=== PATIENT | female | born 1965 | race Caucasian/White ===

== ENCOUNTER 2017-07-14 05:57 | Day surgery (SDC) | payer OTHER ==
[2017-07-14] MEDS ORDERED: DIPRIVAN 200 MG/20 ML IV ONE (05:58)
[2017-07-14] MEDS ORDERED: Versed 2 MG/2 ML Injection IV ONE (05:58)
[2017-07-14] MEDS ORDERED: Lactated Ringers 1,000 ML IV SCH (06:30)
[2017-07-14 09:10] VITALS: BP 118/81; PULSE 80; O2SAT 98
--- NOTE | 2017-07-14 09:42 | OP ---
SURGERY DATE/TIME: 07/14/2017 0727 PREOPERATIVE DIAGNOSIS: Screening exam. POSTOPERATIVE DIAGNOSIS: Sigmoid colon polyp. PROCEDURE: Colonoscopy with biopsy. SURGEON: Dr. Nichole. ANESTHESIA: MAC. Medications given by anesthesia department. HISTORY: The patient is a 52 year-old white female presenting now for her first screening colonoscopy. She was appraised of the risks of the procedure including the risk of perforation, phlebitis, untoward reaction to medication, bleeding and missed lesions. The patient verbalized her understanding and desired to have the procedure performed. DESCRIPTION OF PROCEDURE: The patient was given the medications by the anesthesia department. She had continuous pulse oximetry, ECG monitoring, intermittent blood pressure monitoring and tidal CO2 monitoring during the examination. She was placed in the left lateral decubitus position. A digital rectal examination was performed and revealed normal anal sphincter tone and no masses. There were noted to be external hemorrhoids. The flexible Olympus pediatric colonoscope was used to intubate the rectum. A view of the colon was developed sequentially to the cecum. Upon insertion and withdrawal, including a retroflex view in the rectum was noted one small polyp measuring approximately 0.7 cm in size which was biopsied using cold biopsy technique destroying the lesion. Upon insertion and withdrawal including retroflex view in the rectum no other mucosal lesions being encountered the scope was removed from the patient who tolerated the procedure well and was sent back to OP recovery in good condition. The prep was noted to be good.
== END 2017-07-14 08:50 | disposition home or self-care (01) ==
LOC: SDC 05:57
PROVIDERS: ATTEND Family Medicine
PROC: 0DBN8ZX Excision of Sigmoid Colon, Via Natural or Artificial Opening Endoscopic, Diagnostic (ICD-10-PCS; principal; 2017-07-14)
DX: K63.5 Polyp of colon (principal); Z12.11 Encounter for screening for malignant neoplasm of colon; E78.5 Hyperlipidemia, unspecified; K21.9 Gastro-esophageal reflux disease without esophagitis
CPT/HCPCS: 88305; J2250; J2704

== ENCOUNTER 2017-11-09 11:32 | Emergency (ER) | payer OTHER ==
[2017-11-09] MEDS ORDERED: BENADRYL 50 MG/ML IV ONE (11:40)
[2017-11-09] MEDS ORDERED: Sodium Chloride 0.9% 1000 ML 1,000 ML IV STA (11:40)
[2017-11-09] MEDS ORDERED: solu-MEDROL 125 MG IV ONE (11:40)
[2017-11-09] MEDS ORDERED: Pepcid 20 MG VIAL IV ONE ×2 (11:40→11:45)
[2017-11-09] MEDS ORDERED: CLARITIN 10 MG PO ONE (11:40)
--- NOTE | 2017-11-09 11:40 | ERPHSYRPT ---
- History of Present Illness Time Seen by Provider: 11/09/17 11:36 Source: patient Exam Limitations: no limitations Physician History: The patient is a 52-year-old female complaining of a sudden onset of swelling to her upper eyelids, itchiness in the back of her throat, and feeling of the well. This began just a few minutes before arrival. She started taking colchicine first time yesterday for gout. She took 1 dose again today at about 7:30 or hours ago. She is not allergic to any no medicines. She has a little bit of a rash to her upper eyelids. Past medical history is significant for gout, hypothyroidism, and GERD. Timing/Duration: today, sudden Severity: moderate Modifying Factors: Improves With: nothing Associated Symptoms: shortness of breath, rash Allergies/Adverse Reactions: walnut Allergy (Severe, Verified 11/09/17 14:09) Tightness of Throat rofecoxib [From Vioxx] Adverse Reaction (Severe, Verified 11/09/17 14:09) severe rectal bleeding Home Medications: Estradiol 1 mg [Estrace 1 mg] 1 mg PO DAILY 07/05/17 [History] Levothyroxine Sodium 112 Mcg [Synthroid 112 Mcg] 112 mcg PO DAILY 07/05/17 [History] Lovastatin 20 mg PO DAILY 07/05/17 [History] Omeprazole 20 MG [Prilosec 20 mg] 20 mg PO BID 07/05/17 [History] Colchicine 0.6 mg PO 11/09/17 [History] Estradiol 1 mg [Estrace 1 mg] 1 mg PO DAILY 11/09/17 [History] Omeprazole 20 MG [Prilosec 20 mg] 20 mg PO 11/09/17 [History] - Review of Systems Constitutional: No Fever, No Chills Eyes: No Symptoms Ears, Nose, & Throat: No Symptoms Respiratory: Dyspnea Cardiac: Edema (eye lids) Abdominal/Gastrointestinal: No Abdominal Pain, No Nausea, No Vomiting, No Diarrhea Genitourinary Symptoms: No Dysuria Musculoskeletal: No Back Pain, No Neck Pain Skin: Rash Neurological: No Dizziness, No Focal Weakness, No Sensory Changes Psychological: No Symptoms Endocrine: No Symptoms Hematologic/Lymphatic: No Symptoms Immunological/Allergic: No Symptoms All Other Systems: Reviewed and Negative - Nursing Vital Signs Nursing Vital Signs: Initial Vital Signs Temperature 98.2 F 11/09/17 11:36 Pulse Rate 72 11/09/17 11:36 Respiratory Rate 22 11/09/17 11:36 Blood Pressure 149/84 11/09/17 11:36 O2 Sat by Pulse Oximetry 99 11/09/17 11:36 Pain Scale Pain Intensity 0 - Physical Exam General Appearance: no apparent distress, alert Eye Exam: PERRL/EOMI, other (swelling of medial aspect of bilateral upper eye lids.) Ears, Nose, Throat Exam: TMs normal, pharynx normal, moist mucous membranes, other (slightly swollen uvula) Neck Exam: normal inspection, non-tender, supple, full range of motion Respiratory Exam: normal breath sounds, lungs clear, No respiratory distress, No wheezing Cardiovascular Exam: regular rate/rhythm, normal heart sounds, normal peripheral pulses Gastrointestinal/Abdomen Exam: soft, normal bowel sounds, No tenderness, No mass Pelvic Exam: not done Rectal Exam: not done Back Exam: normal inspection, normal range of motion, No CVA tenderness, No vertebral tenderness Extremity Exam: normal inspection, normal range of motion, pelvis stable Neurologic Exam: alert, oriented x 3, cooperative, normal mood/affect, nml cerebellar function, nml station & gait, sensation nml, No motor deficits Skin Exam: normal color, warm, dry, No rash Lymphatic Exam: No adenopathy SpO2 Interpretation: normal Oxygen Delivery: Room Air - Radiology Exams Chest X-ray Interpretation: Reviewed by me, Teleradiologist Report (per Dr Oneal), Other (single view AP chest with right base infiltrate versus atelecstasis. ) Ordered Tests: Active Orders 24 hr Category Date Time Status IV Insertion STAT Care 11/09/17 11:40 Active Pulse Oximetry (ED) STAT Care 11/09/17 11:40 Active CHEST 1 VIEW (PORTABLE) Stat Exams 11/09/17 11:41 Completed BMP Stat Lab 11/09/17 11:50 Completed CBC W DIFF Stat Lab 11/09/17 11:50 Completed Medication Summary Discontinued Medications Generic Name Dose Route Start Last Admin Trade Name Freq PRN Reason Stop Dose Admin Diphenhydramine HCl 50 mg 11/09/17 11:40 11/09/17 11:59 Benadryl 50 Mg/Ml IV 11/09/17 11:41 50 mg STAT ONE Administration Diphenhydramine HCl Confirm 11/09/17 11:45 Benadryl 50 Mg/Ml Administered 11/09/17 11:46 Dose 50 mg .ROUTE .STK-MED ONE Famotidine 20 mg 11/09/17 11:40 11/09/17 11:59 Pepcid 20 Mg Vial IV 11/09/17 11:41 20 mg STAT ONE Administration Famotidine Confirm 11/09/17 11:45 Pepcid 20 Mg Vial Administered 11/09/17 11:46 Dose 20 mg IV .STK-MED ONE Sodium Chloride 1,000 mls @ 999 mls/hr 11/09/17 11:40 11/09/17 12:00 Sodium Chloride 0.9% 1000 Ml IV 11/09/17 12:40 999 mls/hr .Q1H1M STA Administration Sodium Chloride Confirm 11/09/17 11:45 Sodium Chloride 0.9% 1000 Ml Administered 11/09/17 11:46 Dose 1,000 mls @ ud .ROUTE .STK-MED ONE Loratadine 10 mg 11/09/17 11:40 11/09/17 12:03 Claritin 10 Mg PO 11/09/17 11:41 10 mg STAT ONE Administration Methylprednisolone Sodium Succinate 125 mg 11/09/17 11:40 11/09/17 12:00 Solu-Medrol 125 Mg IV 11/09/17 11:41 125 mg STAT ONE Administration Methylprednisolone Sodium Succinate Confirm 11/09/17 11:45 Solu-Medrol 125 Mg Administered 11/09/17 11:46 Dose 125 mg .ROUTE .STK-MED ONE Lab/Rad Data: Laboratory Result Diagrams 11/09/17 11:50 11/09/17 11:50 Laboratory Results 11/09/17 11/09/17 Range/Units 11:50 11:50 WBC 5.9 (4.0-10.5) K/mm3 RBC 4.80 (4.1-5.4) M/mm3 Hgb 14.3 (12.0-16.0) gm/dl Hct 42.5 (35-47) % MCV 88.5 (78-100) fl MCH 29.8 (26-32) pg MCHC 33.6 (32-36) g/dl RDW 14.4 H (11.5-14.0) % Plt Count 273 (150-450) K/mm3 MPV 10.3 H (6-9.5) fl Gran % 53.6 (36.0-66.0) % Eos # (Auto) 0.13 (0-0.5) Absolute Lymphs (auto) 2.24 (1.0-4.6) Absolute Monos (auto) 0.32 (0.0-1.3) Lymphocytes % 38.1 (24.0-44.0) % Monocytes % 5.4 (0.0-12.0) % Eosinophils % 2.2 (0.00-5.0) % Basophils % 0.7 (0.0-0.4) % Absolute Granulocytes 3.15 (1.4-6.9) Basophils # 0.04 (0-0.4) Sodium 140 (137-145) mmol/L Potassium 3.9 (3.5-5.1) mmol/L Chloride 104 (98-107) mmol/L Carbon Dioxide 25 (22-30) mmol/L Anion Gap 15.1 H (5-15) MEQ/L BUN 20 H (7-17) mg/dL Creatinine 0.76 (0.52-1.04) mg/dL Estimated GFR > 60.0 ML/MIN Glucose 132 H (74-106) mg/dL Calcium 9.2 (8.4-10.2) mg/dL - Progress Progress: improved - Departure Time of Disposition: 14:34 Departure Disposition: Home Clinical Impression: Allergic reaction Condition: Stable Critical Care Time: No Referrals: JOSE ANGEL RIVERS [Primary Care Provider] - Additional Instructions: You had an allergic reaction, likely to colchicine. You were given Solu-Medrol 125 mg, Benadryl 50 mg, Pepcid 20 mg, and fluids by IV. You were also given Claritin 10 mg orally. Take Benadryl 25-50 mg every 2 hours as needed. Follow- up with your primary medical doctor as needed.
[2017-11-09] MEDS ORDERED: solu-MEDROL 125 MG ONE (11:45)
[2017-11-09] MEDS ORDERED: Sodium Chloride 0.9% 1000 ML 1,000 ML ONE (11:45)
[2017-11-09] MEDS ORDERED: BENADRYL 50 MG/ML ONE (11:45)
[2017-11-09 12:11] LABS: BASOPHIL % 0.7 % (0.0-0.4); Basophil (Absolute #) 0.04 (0-0.4); Eosinophil % 2.2 % (0.00-5.0); Eosinophil (Absolute #) 0.13 (0-0.5); Granulocyte Absolute (ANC) 3.15 (1.4-6.9); Granulocytes % 53.6 % (36.0-66.0); Hematocrit 42.5 % (35-47); Hemoglobin 14.3 gm/dl (12.0-16.0); Lymphocyte (Absolute #) 2.24 (1.0-4.6); Lymphocytes % 38.1 % (24.0-44.0); Mean Cell Volume 88.5 fl (78-100); Mean Corpuscular Hemoglobin 29.8 pg (26-32); Mean Corpuscular Hgb Concent. 33.6 g/dl (32-36); Mean Platelet Volume 10.3 fl (6-9.5); Monocyte (Absolute #) 0.32 (0.0-1.3); Monocytes % 5.4 % (0.0-12.0); Platelet Count 273 K/mm3 (150-450); Red Cell Distribution Width 14.4 % (11.5-14.0); White Blood Count 5.9 K/mm3 (4.0-10.5)
--- NOTE | 2017-11-09 12:19 | XRAY ---
Indication: Short of breath. Comparison: None Portable chest demonstrates small focus right base infiltrate versus atelectasis. Remaining heart, lungs, and bony thorax normal.
[2017-11-09 12:33] LABS: ANION GAP 15.1 MEQ/L (5-15); BLOOD UREA NITROGEN 20 mg/dL (7-17); CHLORIDE 104 mmol/L (98-107); Calcium 9.2 mg/dL (8.4-10.2); Carbon Dioxide 25 mmol/L (22-30); Creatinine 1 0.76 mg/dL (0.52-1.04); Glucose 132 mg/dL (74-106); Potassium 3.9 mmol/L (3.5-5.1); SODIUM 140 mmol/L (137-145)
[2017-11-09 15:01] VITALS: BP 130/62; PULSE 78; O2SAT 97
== END 2017-11-09 15:03 | disposition home or self-care (01) ==
LOC: ED 11:32 → MERGE 11:32 → ED 15:03
DX: T78.40XA Allergy, unspecified, initial encounter (principal); Z79.899 Other long term (current) drug therapy
CPT/HCPCS: 36000; 36415; 71045; 80048; 85025; 96360; 96361; 96374; 96375; 99284; J1200; J2930; A9270-GY

== ENCOUNTER 2019-12-23 09:22 | Day surgery (SDC) | payer BC ==
[~2019-12-23 09:22] MED LIST: Lactated Ringers 1,000 ML IV ONE; Sensorcaine 0.25% 10 ML ONE
[2019-12-23] MEDS ORDERED: Lactated Ringers 1,000 ML IV ONE (09:44)
[2019-12-23] MEDS ORDERED: MEFOXIN 2 GM PREMIX** 2 GM/50 ML ML IV ONE (09:44)
[2019-12-23] MEDS ORDERED: Zemuron 100 MG/10 ML ONE ×2 (09:50→11:46)
[2019-12-23] MEDS ORDERED: SUBLIMAZE 250 MCG/5 ML ONE (09:50)
[2019-12-23] MEDS ORDERED: Versed 2 MG/2 ML Injection ONE (09:50)
[2019-12-23] MEDS ORDERED: DIPRIVAN 200 MG/20 ML IV ONE (09:50)
[2019-12-23 10:00] VITALS: O2SAT 99
[2019-12-23] MEDS ORDERED: Lactated Ringers 1,000 ML IV SCH (10:00)
[2019-12-23] MEDS ORDERED: MEFOXIN 2 GM PREMIX** 2 GM/50 ML ML IV SCH (10:00)
--- NOTE | 2019-12-23 10:11 | HP ---
DATE OF SURGERY: 12/23/2019 HISTORY OF PRESENT ILLNESS: The patient is a 54 year old with nausea, pain over the right shoulder and flank area, right upper quadrant associated with nausea and vomiting, with some light stool occasionally. Lower abdomen, flank, shoulder area aches and pains. The patient had an ultrasound that did not show any stone. HIDA scan was 82%. She was seen by Dr. Franks and had endoscopic ultrasound. He thought she had some chronic cholecystitis and gallbladder wall thickening. He felt she should proceed with cholecystectomy at this point. PAST MEDICAL HISTORY: Hypothyroidism. Hyperlipidemia. PAST SURGICAL HISTORY: Hysterectomy. Oophorectomy. Appendectomy. Diagnostic laparoscopy in the past. MEDICATIONS: Levothyroxine, lovastatin, multivitamins, omega-3 fish oil, estradiol, albuterol, Flonase. ALLERGIES: BUPROPION. COLCHINE. ROFECOXIB. WALNUT. FAMILY HISTORY: Diabetes, heart disease, thyroid disease. Her mother had some melanoma. Daughter has diabetes. SOCIAL HISTORY: No smoking or alcohol abuse. REVIEW OF SYSTEMS: Fourteen systems reviewed pertinent as noted above. No chest pain or palpitations. Other systems negative or noncontributory as above and per preadmission questionnaire. PHYSICAL EXAMINATION: GENERAL: No acute distress. HEENT: Sclerae nonicteric. NECK: No JVD. CHEST: Equal excursion, nonlabored breathing. CVS: Regular rate and rhythm. ABDOMEN: Soft. Tenderness in right lateral flank area radiating back towards the shoulder. No peritoneal signs. EXTREMITIES: No significant edema. NEURO: Alert, oriented, moving extremities symmetrically. No gross motor deficits noted. PSYCH: Appropriate mood and affect. IMPRESSION: Thickening of gallbladder wall on endoscopic ultrasound. The patient had symptoms with CPK administration. I feel she has got some chronic cholecystitis given the above findings and symptoms, acute exacerbation of chronic cholecystitis, biliary colic. I feel the patient will benefit from cholecystectomy as recommended by shot blaster. The patient was explained the procedure in detail including bleeding or infection, risk of bowel injury or perforation possibly requiring further procedure, risk of trocar injury or hernia, risk of bowel leak, bile duct injury, retained stone or sludge possibly requiring further procedure either open or ERCP, general risk of anesthesia, deep venous thrombosis, pulmonary embolism, pneumonia, perioperative risk of aches, pains, bloating, constipation and/or loose stools possibly chronic in nature, possibility this procedure may not improve her symptoms. She may need further work up and/or testing, endoscopy, other studies or procedures or referral. She understands and agrees to the planned procedure, will proceed with laparoscopic cholecystectomy with possible open as an outpatient.
[2019-12-23] MEDS ORDERED: Transderm Scop 1.5MG Patch TOP ONE (11:27)
[2019-12-23] MEDS ORDERED: Decadron 4 MG INJ ONE (11:38)
[2019-12-23] MEDS ORDERED: MORPHINE SULFATE 10 MG/ML ONE (12:36)
--- NOTE | 2019-12-23 13:20 | OP ---
SURGERY DATE/TIME: 12/23/2019 1128 PREOPERATIVE DIAGNOSIS: Symptomatic biliary colic exacerbation, chronic cholecystitis, abnormal endoscopic ultrasound, abnormal wall thickening consistent with chronic cholecystitis. POSTOPERATIVE DIAGNOSIS: Symptomatic biliary colic exacerbation, chronic cholecystitis, abnormal endoscopic ultrasound, abnormal wall thickening consistent with chronic cholecystitis. PROCEDURE: Laparoscopic cholecystectomy. SURGEON: Dr. Lg Garcia. ANESTHESIA: General. ESTIMATED BLOOD LOSS: Minimal. INDICATIONS: As noted above. Risks and benefits explained in detail but not limited to and consent obtained. DESCRIPTION OF PROCEDURE AND FINDINGS: The patient taken to the operating room. General anesthesia induced. Abdomen prepped and draped in the usual sterile fashion. After official time out and no disagreement with planned procedure, a transverse incision made through her supraumbilical prior skin incision scar. Dissection carried down. Fascia grasped and pulled upward. Veress needle inserted and tested with saline. Pneumoperitoneum accomplished insufflating opening pressure of 0-15. An 11 mm bladeless port and camera inserted without difficulty followed by two - 5 mm right upper quadrant ports and 5 mm epigastric port. The gallbladder had some mild chronic inflammatory reaction this was slowly and carefully dissected posterior, lateral to anterior fashion. The cystic artery isolated directly on the gallbladder wall, clipped x3 and divided. Slowly and carefully cystic duct and infundibular area slowly and carefully well skeletonized until the critical view obtained both anteriorly and posteriorly, this took some time given her chronic inflammatory reaction around it but slowly and carefully accomplished. Once this was accomplished critical view was obtained. The cystic duct was then clipped x3 and divided in usual fashion. Gallbladder slowly and carefully dissected free from its dense attachment to liver bed, clipping additional oozing side branches off the cystic artery as necessary directly on the gallbladder wall. Just prior to releasing from final attachments to the anterior edge of the liver, the liver bed re-inspected. Clips noted to be in place cystic duct and cystic artery stumps. No signs of any active bleeding or bile leakage. It was felt there was no benefit from drain placement. Gallbladder released from final attachments to anterior edge of the liver, pulled up and out the supraumbilical port site and passed off. Liver bed re-inspected one last time. Clips noted to be in place cystic duct and cystic artery stumps. No signs of any active bleeding or bile leakage. It was felt there is no benefit from drain placement. Fascial defect closed with puncture closure device with #1 Vicryl. Pneumoperitoneum decompressed. The wound irrigated out. Skin incision closed with 4-0 Vicryl. Steri-Strips and sterile dressing applied. 0.25% Marcaine local injected along the skin incision fascial defect. The patient tolerated the procedure well. There were no immediate complications.
[2019-12-23] MEDS ORDERED: NORCO 5/325 MG PO PRN (13:41)
[2019-12-23 14:45] VITALS: BP 127/74; PULSE 60
== END 2019-12-23 14:33 | disposition home or self-care (01) ==
LOC: SDC 09:22
PROVIDERS: ATTEND Surgery
DX: K80.44 Calculus of bile duct with chronic cholecystitis without obstruction (principal); E03.9 Hypothyroidism, unspecified; E78.5 Hyperlipidemia, unspecified; Z79.899 Other long term (current) drug therapy
CPT/HCPCS: J0694; J1100; J2250; J2270; J2704; J3010; A9270-GY

== ENCOUNTER 2020-08-18 07:16 | Emergency (ER) | payer BC, OTHER ==
[2020-08-18] MEDS ORDERED: Pepcid 20 MG VIAL IV ONE ×2 (07:21→07:30)
[2020-08-18] MEDS ORDERED: solu-MEDROL 125 MG ONE (07:21)
[2020-08-18] MEDS ORDERED: BENADRYL 50 MG/ML ONE (07:21)
[2020-08-18] MEDS ORDERED: solu-MEDROL 125 MG IM ONE (07:29)
[2020-08-18] MEDS ORDERED: BENADRYL 50 MG/ML IM ONE (07:30)
--- NOTE | 2020-08-18 07:43 | ERPHSYRPT ---
- History of Present Illness Time Seen by Provider: 08/18/20 07:37 Source: patient Exam Limitations: no limitations Patient Subjective Stated Complaint: pt here for allergic reaction to cat, she has had claritan, and flonase today, eyes swollen and states feels like lumb in throat Triage Nursing Assessment: has swollen eyes, no drooling. pt alert, resp easy, skin w/d/p. Physician History: 55 years old female presented in the ER with chief complaint of allergic reaction. Patient reports she spent couple of days with her son who has a cat which she is allergic to cat hairs. Last night she started to have some scra tchiness in the throat and puffiness around her eyes which is progressively worsening. Mild difficulty swallowing but no difficulty breathing. She is also having itching on the arms and legs. She did clean her linen but her symptoms are getting worse this morning. Timing/Duration: yesterday, gradual onset, worse Severity: moderate Modifying Factors: Improves With: nothing Associated Symptoms: No vomiting, No abdominal pain, No shortness of breath, No chest pain Allergies/Adverse Reactions: bupropion [From Wellbutrin] Allergy (Severe, Verified 12/23/19 09:42) Stomach Pain walnut Allergy (Severe, Verified 11/09/17 14:09) Tightness of Throat cat dander Allergy (Verified 08/18/20 07:18) colchicine Allergy (Verified 12/23/19 09:42) Swelling rofecoxib [From Vioxx] Adverse Reaction (Severe, Verified 11/09/17 14:09) severe rectal bleeding Home Medications: Levothyroxine Sodium 112 Mcg [Synthroid 112 Mcg] 125 mcg PO DAILY 07/05/17 [History] Lovastatin 20 mg PO DAILY 07/05/17 [History] Estradiol 1 mg [Estrace 1 mg] 0.5 mg PO DAILY 11/09/17 [History] Albuterol Sulfate [Ventolin Hfa] 18 gm IH DAILY 12/18/19 [History] Fluticasone Propionate [Flonase Allergy Relief] 15.8 ml NS DAILY 12/18/19 [History] Multivitamin [Multivitamins] 1 each PO DAILY 12/18/19 [History] [place]-3/Dha/Epa/Fish Oil [Fish Oil 500 mg Softgel] 1 each PO DAILY 12/18/19 [History] Hx Tetanus, Diphtheria Vaccination/Date Given: Yes Hx Influenza Vaccination/Date Given: Yes Hx Pneumococcal Vaccination/Date Given: No Immunizations Up to Date: Yes Travel Risk - International Travel Have you traveled outside of the country in past 3 weeks: No - Coronavirus Screening Are you exhibiting any of the following symptoms?: No - Vaccine Status Have you recieved a Covid-19 vaccination: Yes Cash Reconciliation Specialist: Ezoic - Vaccination Dates Date of 2cond Vaccination (if applicable): may - Review of Systems Constitutional: No Symptoms Eyes: No Symptoms Ears, Nose, & Throat: Throat Pain, Throat Swelling, Painful Swallowing Respiratory: No Symptoms Cardiac: No Symptoms Abdominal/Gastrointestinal: No Symptoms Genitourinary Symptoms: No Symptoms Musculoskeletal: No Symptoms Skin: Rash Neurological: No Symptoms Psychological: No Symptoms Endocrine: No Symptoms Hematologic/Lymphatic: No Symptoms Immunological/Allergic: No Symptoms - Past Medical History Pertinent Past Medical History: Yes Neurological History: No Pertinent History ENT History: No Pertinent History Cardiac History: High Cholesterol Respiratory History: Asthma Endocrine Medical History: Hyperthyroidism, Hypothyroidism Musculoskeletal History: Arthritis GI Medical History: No Pertinent History, GERD History: No Pertinent History Psycho-Social History: No Pertinent History Female Reproductive Disorders: Endometriosis - Past Surgical History Past Surgical History: Yes Neuro Surgical History: No Pertinent History Cardiac: No Pertinent History Respiratory: No Pertinent History Gastrointestinal: Appendectomy Genitourinary: No Pertinent History Musculoskeletal: No Pertinent History Female Surgical History: Hysterectomy, Section, Other Other Surgical History: x two 1996,1997, oorectomy 2004,2006 r/t ovarian cyst,appy 2005, laparoscopy x two, knee surgery 2014 - Social History Smoking Status: Never smoker Exposure to second hand smoke: No Drug Use: none Patient Lives Alone: No - Female History Hx Last Menstrual Period: hyster Hx Now: No - Nursing Vital Signs Nursing Vital Signs: Initial Vital Signs Temperature 98.6 F 08/18/20 07:17 Pulse Rate 67 08/18/20 07:17 Respiratory Rate 16 08/18/20 07:17 Blood Pressure 166/103 08/18/20 07:17 O2 Sat by Pulse Oximetry 98 08/18/20 07:17 Pain Scale Pain Intensity 0 - Physical Exam General Appearance: no apparent distress, alert Eye Exam: PERRL/EOMI, other (Mild puffiness around eyes with some test.) Ears, Nose, Throat Exam: pharyngeal erythema, other (No swelling of urologic tongue or floor of mouth.) Neck Exam: normal inspection, non-tender, supple, full range of motion Respiratory Exam: normal breath sounds, lungs clear Cardiovascular Exam: regular rate/rhythm, normal heart sounds Gastrointestinal/Abdomen Exam: soft, No tenderness Extremity Exam: normal inspection, normal range of motion Neurologic Exam: alert, oriented x 3, cooperative, 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 tested Skin Exam: normal color, rash ([place] on the forearms) SpO2 Interpretation: normal SpO2: 98 O2 Delivery: Room Air Ordered Tests: Medication Summary Discontinued Medications Generic Name Dose Route Start Last Admin Trade Name Freq PRN Reason Stop Dose Admin Diphenhydramine HCl 50 mg 08/18/20 07:30 08/18/20 07:32 Benadryl 50 Mg/Ml IM 08/18/20 07:31 50 mg STAT ONE Administration Famotidine 20 mg 08/18/20 07:30 08/18/20 07:32 Pepcid 20 Mg Vial IV 08/18/20 07:31 20 mg STAT ONE Administration Methylprednisolone Sodium Succinate 125 mg 08/18/20 07:29 08/18/20 07:32 Solu-Medrol 125 Mg IM 08/18/20 07:30 125 mg STAT ONE Administration - Progress Progress: improved Progress Note: she is given Solu-Medrol/Benadryl/Pepcid, observed in the ER and symptoms started to improve. No difficulty breathing. No airway compromise or swelling of tongue/angioedema. We will continue with above medications to go home and also EpiPen to use as needed. Signs symptoms of worsening needing return to ER which she seemed understanding. 08/18/20 08:34 Counseled pt/family regarding: diagnosis, need for follow-up - Departure Departure Disposition: Home Clinical Impression: Allergic reaction Qualifiers: Encounter type: initial encounter Qualified Code(s): T78.40XA - Allergy, unspecified, initial encounter Condition: Stable Critical Care Time: No Referrals: JOI VILLEDA [ACTIVE STAFF] - (1-2 days for reevaluation) Instructions: Anaphylaxis (DC) Additional Instructions: Avoid exposure to cats. Continue with steroids/Benadryl/Pepcid. Use EpiPen as needed for anaphylactic reactions. Prescriptions: Diphenhydramine HCl 25 mg [Benadryl 25 mg Capsule] 25 mg PO Q4H PRN PRN #20 capsule PRN Reason: Allergies Diphenhydramine HCl 25 mg [Benadryl 25 mg Capsule] 25 mg PO Q4H PRN PRN #20 capsule PRN Reason: Allergies Prednisone 20 mg [Deltasone 20 mg] 60 mg PO DAILY 5 Days #15 tablet Epinephrine [Epipen] 0.3 mg IM DAILY PRN PRN 1 Days #0.3 ml PRN Reason: Allergies Famotidine 20 mg [Pepcid 20 MG] 20 mg PO BID #10 tablet Famotidine 20 mg [Pepcid 20 MG] 20 mg PO BID #10 tablet
[2020-08-18 08:55] VITALS: BP 144/80; PULSE 75; O2SAT 99
== END 2020-08-18 08:55 | disposition home or self-care (01) ==
LOC: ED 07:16
DX: T78.40XA Allergy, unspecified, initial encounter (principal); Z79.899 Other long term (current) drug therapy
CPT/HCPCS: 96372; 99284; J1200; J2930

== ENCOUNTER 2021-08-25 05:59 | Day surgery (SDC) | payer BC ==
[2021-08-25] MEDS ORDERED: Lactated Ringers 1,000 ML IV ONE (06:54)
[2021-08-25] MEDS ORDERED: Lactated Ringers 1,000 ML IV SCH (07:00)
[2021-08-25] MEDS ORDERED: DIPRIVAN 200 MG/20 ML IV ONE (08:17)
[2021-08-25] MEDS ORDERED: Xylocaine-Mpf 2% 5 Ml Vial ONE (08:17)
[2021-08-25] MEDS ORDERED: SUBLIMAZE 100 MCG/2 ML ONE (08:36)
--- NOTE | 2021-08-25 09:21 | OP ---
SURGERY DATE/TIME: 08/25/2021 0833 PREOPERATIVE DIAGNOSIS: Chronic constipation. POSTOPERATIVE DIAGNOSIS: Sigmoid colon polyp. PROCEDURE: Colonoscopy. SURGEON: Myles Tobar M.D. ANESTHESIA: MAC by Louie Oneal CRNA. ESTIMATED BLOOD LOSS: Minimal. SPECIMENS: Cold forceps polypectomy of sigmoid colon polyp. DESCRIPTION OF PROCEDURE: After informed written consent was obtained, the patient was taken to the endoscopy suite. She was placed in left lateral decubitus position and anesthesia titrated to desired level of consciousness. Digital rectal exam showed normal sphincter tone and no internal lesions. The scope was inserted into the rectum and sequentially the entire colonic mucosa was traversed. The level of cecum was reached and verified with direct visualization of the ileocecal valve. Upon withdrawal careful mucosal inspection revealed no gross abnormalities other than a small sessile polyp in the distal sigmoid colon which was grasped with forceps and removed in its entirety in two pieces. Minimal bleeding was encountered. The entire lesion appeared to be removed. The remainder of the exam was unremarkable. Retroflexion showed no internal lesions. The scope was removed and the patient was transferred to the recovery room in good condition.
[2021-08-25 09:39] VITALS: BP 130/79; PULSE 71; O2SAT 98
== END 2021-08-25 09:45 | disposition home or self-care (01) ==
LOC: SDC 05:59
PROVIDERS: ATTEND Family Medicine
DX: K63.5 Polyp of colon (principal); K59.09 Other constipation
CPT/HCPCS: J2704; J3010